=== PATIENT | female | born 1985 | race Two or more races ===

== ENCOUNTER 2018-08-11 09:37 | Inpatient (IN) | payer OTHER ==
[~2018-08-11] VITALS: Ht 165.1 cm; Wt 65.3 kg
[2018-08-12] MEDS ORDERED: PRENATAL MULTI1 EAC3 PO (15:27)
[2018-08-13] MEDS ORDERED: EC-NAPROSYN375 MG PO (09:29)
== END 2018-08-13 10:56 | DRG 768 ==
LOC: OB/GYN 09:37 → LDR 09:37 → OB/GYN 14:11
PROVIDERS: ADMIT Obstetrics & Gynecology
PROC: 10E0XZZ Delivery of Products of Conception, External Approach (ICD-10-PCS; principal; 2018-08-11)
PROC: 0DQR0ZZ Repair Anal Sphincter, Open Approach (ICD-10-PCS; 2018-08-11)
PROC: 0UQGXZZ Repair Vagina, External Approach (ICD-10-PCS; 2018-08-11)
PROC: 4A1HXCZ Monitoring of Products of Conception, Cardiac Rate, External Approach (ICD-10-PCS; 2018-08-11)
PROC: 4A033R1 Measurement of Arterial Saturation, Peripheral, Percutaneous Approach (ICD-10-PCS; 2018-08-11)
DX: O70.21 Third degree perineal laceration during delivery, IIIa (principal); Z37.0 Single live birth; Z3A.40 40 weeks gestation of pregnancy

== ENCOUNTER 2021-12-03 07:56 | Outpatient (CLI) | payer OTHER ==
[~2021-12-03 07:56] MED LIST: EC-NAPROSYN375 MG PO; PRENATAL MULTI1 EAC3 PO
== END 2021-12-03 09:20 | disposition home or self-care (01) ==
LOC: PRENATAL 07:56
PROVIDERS: ATTEND Obstetrics & Gynecology Maternal & Fetal Medicine
DX: O35.0XX0 Maternal care for (suspected) central nervous system malformation in fetus, not applicable or unspecified (principal); O35.3XX0 Maternal care for (suspected) damage to fetus from viral disease in mother, not applicable or unspecified; O09.529 Supervision of elderly multigravida, unspecified trimester; Z3A.23 23 weeks gestation of pregnancy